=== PATIENT | male | born 1985 | race African-American/Black ===

== ENCOUNTER 2024-11-09 23:38 | Emergency (ER) | payer OTHER ==
[~2024-11-09] VITALS: Ht 172.7 cm; Wt 98.0 kg
[2024-11-10 00:09] VITALS: O2SAT 98
[2024-11-10] MEDS: KETOROLAC 15MG/ML VIAL IM ONE (01:27)
[2024-11-10] MEDS ORDERED: AMOX1TAB16 MT (02:57)
[2024-11-10 03:06] VITALS: BP 123/80; PULSE 82; RESP 12; TEMP 36.7; O2SAT 97
== END 2024-11-10 03:09 | disposition home or self-care (01) ==
LOC: ER 23:38
DX: J32.9 Chronic sinusitis, unspecified (principal); I10 Essential (primary) hypertension; Z79.899 Other long term (current) drug therapy
CPT/HCPCS: 99283; 71045; 96372; J1885; Z7610

== ENCOUNTER 2025-03-12 07:06 | Emergency (ER) | payer OTHER ==
[~2025-03-12] VITALS: Ht 172.7 cm; Wt 92.0 kg
[~2025-03-12 07:06] MED LIST: AMOX1TAB16 MT
[2025-03-12 07:08] VITALS: O2SAT 97
[2025-03-12 07:09] VITALS: BP 144/85; PULSE 77; RESP 18; TEMP 36.7; O2SAT 97
[2025-03-12] MEDS: KETOROLAC 30MG/ML VIAL IM ONE (07:42)
[2025-03-12] MEDS: ACETAMINOPHEN 500MG TABLET PO ONE (07:43)
[2025-03-12] MEDS ORDERED: IBUP-2030 PO (07:47)
== END 2025-03-12 08:08 | disposition home or self-care (01) ==
LOC: ER 07:06
DX: E11.40 Type 2 diabetes mellitus with diabetic neuropathy, unspecified (principal); M79.606 Pain in leg, unspecified; I10 Essential (primary) hypertension; Z79.1 Long term (current) use of non-steroidal anti-inflammatories (NSAID)
CPT/HCPCS: 96372; 99283; J1885; Z7610

== ENCOUNTER 2025-04-02 16:36 | Emergency (ER) | payer OTHER, MEDICAID ==
[~2025-04-02] VITALS: Ht 172.7 cm; Wt 94.0 kg
[~2025-04-02 16:36] MED LIST changes: +IBUP-2030 PO
[2025-04-02 16:50] VITALS: O2SAT 98
[2025-04-02 18:37] LABS: BASOPHILS % 1.2 % (0.0-2.0); EOSINOPHILS % 1.5 % (0.0-5.0); HEMATOCRIT. 35.7 % (42.0-52.0); HEMOGLOBIN. 12.2 g/dL (14.0-18.0); LYMPHOCYTES % 45.8 % (20.0-50.0); MEAN PLATELET VOLUME 9.0 fl (7.4-10.4); MONOCYTES % 7.1 % (2.0-8.0); NEUTROPHILS % 44.4 % (40.0-76.0); PLATELET 288 x1000/uL (130-400); RED BLOOD CELL COUNT 3.94 mill/uL (4.7-6.1); RED CELL DISTRIBUTION WIDTH 13.5 % (11.6-14.6)
[2025-04-02] MEDS: SODIUM CHLORIDE 0.9% 1,000 ML IV ONE (18:45)
[2025-04-02 18:49] LABS: CREATININE 1.9 mg/dL (0.6-1.3); INR 0.9; UREA NITROGEN BLOOD 20 mg/dL (9-23)
[2025-04-02 18:51] LABS: TROPONIN I HIGH SENSITIVITY 10 ng/L (3.0-53)
[2025-04-02 20:39] LABS: TROPONIN I HIGH SENSITIVITY 10 ng/L (3.0-53)
[2025-04-02 22:01] VITALS: BP 132/81; PULSE 79; RESP 18; TEMP 37; O2SAT 98
[2025-04-02] MEDS ORDERED: IOHEXOL-350 100 ML BOTTLE ONE (23:19)
== END 2025-04-02 22:05 | disposition home or self-care (01) ==
LOC: ER 16:36
DX: R07.81 Pleurodynia (principal); R42 Dizziness and giddiness; R00.2 Palpitations; R06.02 Shortness of breath; B97.89 Other viral agents as the cause of diseases classified elsewhere; I12.9 Hypertensive chronic kidney disease with stage 1 through stage 4 chronic kidney disease, or unspecified chronic kidney disease; E11.22 Type 2 diabetes mellitus with diabetic chronic kidney disease; N18.9 Chronic kidney disease, unspecified; Z79.1 Long term (current) use of non-steroidal anti-inflammatories (NSAID)
CPT/HCPCS: 99285; 96360; 71275; 71045; 80048; 83880; 83690; 83735; 85025; 85379; 85610; 85730; 84484; 36415; 93005; Q9967; J7030